=== PATIENT | male | born 1965 | race Caucasian/White ===

== ENCOUNTER 2017-07-09 14:52 | Emergency (ER) | payer MEDICAID ==
[2017-07-09] MEDS ORDERED: Acetaminophen TAB* 325 MG PO ONE (15:18)
--- NOTE | 2017-07-09 15:46 | RAD ---
HISTORY: Right-sided rib pain, cough COMPARISONS: Chest x-ray dated July 09, 2017 VIEWS: 4, Frontal and oblique views of the right hemithorax. FINDINGS: There is no displaced rib fracture or pneumothorax. The visualized lungs are clear. IMPRESSION: NO DISPLACED RIB FRACTURE OR PNEUMOTHORAX.
--- NOTE | 2017-07-09 15:46 | RAD ---
HISTORY: Fever, cough COMPARISONS: None VIEWS: 4: Frontal dual-energy and lateral views of the chest. FINDINGS: CARDIOMEDIASTINAL SILHOUETTE: The cardiomediastinal silhouette is normal. MARIAH: The mariah are normal. PLEURA: The costophrenic angles are sharp. No pleural abnormalities are noted. LUNG PARENCHYMA: The lungs are clear. ABDOMEN: The upper abdomen is clear. There is no subphrenic gas. BONES AND SOFT TISSUES: No bone or soft tissue abnormalities are noted. OTHER: None. IMPRESSION: NO ACTIVE CARDIOPULMONARY DISEASE.
[2017-07-09] MEDS ORDERED: HYDROcodone/ACETAMIN 5-325 MG* 1 TAB PO ONE (16:10)
[2017-07-09 16:14] VITALS: BP 108/64
--- NOTE | 2017-07-09 17:35 | UC ---
Juni Pickard Jennifer, scribed for Liss Mandujano MD on 07/09/17 at 1521 . Respiratory Complaint HPI - HPI Summary HPI Summary: The patient is a 52 year old male who complains of cough, fever, shortness of breath since late Sat night, early Saturday am. Reports that he had "the flu" approx 2 weeks ago (presumptive), took Tamiflu per outlying physician, exact # days or frequency unclear. Hurts R chest wall to cough, wonders if cracked a rib. + nausea, no diarrhea, no vomit. . Able to take po. Today took acetaminophen in am (time /dose unc), ibuprofen early afternoon ( approx 400mg), but still feels bad. Has nebulizer with medication, also inhalers at home. Reports that they have not helped very much. - History of Current Complaint Chief Complaint: UCRespiratory Stated Complaint: COUGH,FEVER,CONGESTED Time Seen by Provider: 07/09/17 15:09 Hx Obtained From: Patient Onset/Duration: Sudden Onset, Lasting Days - four days, Still Present, Worse Since Timing: Constant Severity Initially: Moderate Severity Currently: Moderate Pain Intensity: 8 Pain Scale Used: 0-10 Numeric Character: Cough: Nonproductive Aggravating Factors: Other - Coughing Alleviating Factors: Nothing Associated Signs And Symptoms: Positive: Fever - Allergies/Home Medications Allergies/Adverse Reactions: Allergies Allergy/AdvReac Type Severity Reaction Status Date / Time animal dander Allergy Difficulty Verified 07/09/17 14:58 Breathing Home Medications: Home Medications Albuterol HFA INHALER* [Ventolin HFA Inhaler*] 1 - 2 puff INH Q4H PRN 07/09/17 [ History Confirmed 07/09/17] Budesonide/Formote 80/4.5(NF) [Symbicort 80/4.5 (NF)] 07/09/17 [History Confirmed 07/09/17] Theozine 07/09/17 [History] PMH/Surg Hx/FS Hx/Imm Hx Previously Healthy: Yes - NEG: HTN, DM - Surgical History Surgical History: None - Family History Known Family History: Negative: Diabetes - Social History Lives: With Family Alcohol Use: None Substance Use Type: Prescribed Smoking Status (MU): Never Smoked Tobacco Review of Systems Constitutional: Fever Respiratory: Cough Gastrointestinal: Nausea Genitourinary: Frequency - Decreased Musculoskeletal: Myalgia All Other Systems Reviewed And Are Negative: Yes Physical Exam - Summary Physical Exam Summary: Appearance: Well-Nourished Eye Exam: Normal ENT Exam: Normal Respiratory Exam: Normal, no dyspnea, no tachypnea, normal respiratory rate Chest non-tender, Lungs clear, Normal breath sounds, No respiratory distress, No accessory muscle use Cardiovascular Exam: Normal Cardiovascular: Heart rate regular, good general skin color, good capillary refill RRR, No Murmur, Pulses Normal - sitting up. Brisk Capillary Refill Abdominal Exam: Normal Abdomen Description: Nontender, No Organomegaly, Soft Bowel Sounds: Present Musculoskeletal Exam: Normal Musculoskeletal: Strength Intact Neurological Exam: Normal: nonfocal, grossly intact. Psychological Exam: Normal: conversing easily and appropriately Skin Exam: Normal: no visible or reported rash Triage Information Reviewed: Yes Appearance: Well-Nourished - sittin up, conversing easily in full sentances Vital Signs: Initial Vital Signs Temp 102.1 F 07/09/17 15:01 Pulse 87 07/09/17 15:01 Resp 18 07/09/17 15:01 BP 128/90 07/09/17 15:01 Pulse Ox 95 07/09/17 15:01 Vital Signs Reviewed: Yes Eye Exam: Normal - grossly normal sclerae a little injected ENT: Positive: Pharyngeal erythema - mild post pharyng redness, uvula midline, no sores / exudates, Nasal congestion, TM dull Neck exam: Normal Neck: Positive: Supple, Nontender, No Lymphadenopathy Respiratory: Positive: Other: - BS equal Occas exp wheeze, bibasilar. No crackles. + rhonchorus cough, worsened with deep inspiration Cardiovascular Exam: Normal, Other - HR regular, correlates with radial pulse Abdominal Exam: Normal Abdomen Description: Positive: Nontender Bowel Sounds: Positive: Present Musculoskeletal Exam: Normal - gait steady, moves x 4 ext's Neurological Exam: Normal - grossly nonfocal Psychological Exam: Normal - conversing easily and appropriately Skin Exam: Normal - no visible or reported rash. nondiaphoretic. UC Diagnostic Evaluation - Laboratory O2 Sat by Pulse Oximetry: 95 - Radiology Xray Interpretation: No Acute Changes - Chest XR: NO ACTIVE CARDIOPULMONARY DISEASE. Ribs XR: NO DISPLACED RIB FRACTURE OR PNEUMOTHORAX. Dr. Mandujano has reviewed this report. Radiology Interpretation Completed By: Radiologist Re-Evaluation - Re-Evaluation First Eval Re-Evaluation Time: 15:44 Change: Unchanged Comment: The patient declined a breathing treatment. Respiratory Course/Dx - Course Course Of Treatment: Offered nebulized treatment at exam, and again at recheck 16:05. But he declines, citing that he has nebulizer and inhalers at home. Temp decreased with acetaminophen. Mr. Soto requests something for the cough at recheck, has been taking robitussin otc. [place] 5/325 po x 1 here. Rx robitussin with codeine - narc talk. [facility] ref # [id number]. Work note x 5 days. + Influenza precautions reviewed, along with need to go to ED if worse or new problems. Mr. Soto was given the opportunity to ask several insightful questions to which I answered to the best of my ability. - Differential Dx/Diagnosis Provider Diagnoses: Influenza A Discharge - Discharge Plan Condition: Stable Disposition: HOME Prescriptions: guaiFENesin/CODIEN 100MG-10MG* [Robitussin AC 100Mg-10Mg*] 10 ml PO Q4H PRN # 150 ml MDD 40ml PRN Reason: Cough Oseltamivir CAP* [Tamiflu CAP*] 75 mg PO BID #10 cap Patient Education Materials: Influenza (DC) Forms: *Work Release Referrals: [facility] [place] [facility]IAN REFERRAL [Outside] Additional Instructions: Please follow up with your primary care provider in 1-2 weeks. Seek medical attention for worse or new problems in the meantime. Your blood pressure was elevated during today's visit, 07/09/2017. Please follow up with your primary care provider in 1-2 weeks. The documentation as recorded by the Juni lauren Jennifer accurately reflects the service I personally performed and the decisions made by me, Liss Mandujano MD.
== END 2017-07-09 16:24 | disposition home or self-care (01) ==
LOC: UCEAST 14:52
DX: J10.1 Influenza due to other identified influenza virus with other respiratory manifestations (principal); R05 Cough; R50.9 Fever, unspecified
CPT/HCPCS: 71046; 87502; 99212; A9270-GY; G0463

== ENCOUNTER 2017-10-24 15:15 | Emergency (ER) | payer OTHER ==
[2017-10-24 15:47] VITALS: BP 139/71
--- NOTE | 2017-10-24 16:00 | UC ---
Back Pain HPI - HPI Summary HPI Summary: 52 y/o male presents to the urgent care c/o lower back and left hip pain for the past 13 days. Pt reports he was shoveling some soil and then lower back was triggered. Now he has numbness and tingling sensation over his left lower extremity. Pain is sharp w/ certain movements, 8/10. He has taken Aleve PO on and off to alleviate symptoms. He has Hx of B/L hip replacement in 2016. He also thinks he probably has a pinch nerve since he has had back pain issues in the past, but he has never done images of his back. Pt denies saddle anesthesia , urinary symptoms, fecal or urinary incontinence, SOB, calf pain. chest pain, abdominal pain, N/V/D - History of Current Complaint Chief Complaint: UCBackPain Stated Complaint: BACK COMPLAINT Time Seen by Provider: 10/24/17 15:58 Hx Obtained From: Patient Onset/Duration: Sudden Onset, Lasting Days - 13 days, Still Present Timing: Intermittent, Lasting Hours Severity Initially: Mild Severity Currently: Moderate Pain Intensity: 8 Pain Scale Used: 0-10 Numeric Back Pain: Is Discrete @ - lower back, Radiates To - left hip and left lower leg Character: Sharp, Spasmodic Aggravating Factor(s): Movement, Lifting, Bending Alleviating Factor(s): Rest, OTC Meds Associated Signs And Symptoms: Positive: Numbness, Tingling - left lower leg at times. Negative: Abdominal Pain, Flank Pain, Bladder Incontinence, Bowel Incontinence, Pain with Weight Bearing - Risk Factors AAA Risk Factors: Negative TAD Risk Factors: Negative Cauda Equina Risk Factors: Negative Epidural Abscess Risk Factors: Negative - Allergies/Home Medications Allergies/Adverse Reactions: Allergies Allergy/AdvReac Type Severity Reaction Status Date / Time animal dander Allergy Difficulty Verified 10/24/17 15:47 Breathing PMH/Surg Hx/FS Hx/Imm Hx Previously Healthy: Yes Respiratory History: Asthma - Surgical History Surgical History: Yes Surgery Procedure, Year, and Place: BILAT HIP REPLACEMENTS, RETINAL REATTACHMENT LEFT EYE - Family History Known Family History: Negative: Diabetes Family History: Cancer - Social History Occupation: Employed Full-time Lives: With Family Alcohol Use: Occasionally Substance Use Type: None Smoking Status (MU): Never Smoked Tobacco Review of Systems Constitutional: Negative Skin: Negative Eyes: Negative ENT: Negative Respiratory: Negative Cardiovascular: Negative Gastrointestinal: Negative Genitourinary: Negative Motor: Weakness - left lower leg Musculoskeletal: Decreased ROM - lower back, Other: - lower back pain Neurological: Negative Psychological: Negative Is Patient Immunocompromised?: No All Other Systems Reviewed And Are Negative: Yes Physical Exam - Summary Physical Exam Summary: Vital Signs Reviewed: Yes Appearance: Well-Appearing, Well-Nourished, male sitting in the examining table w/o any apparent distress. Eyes: Positive: Conjunctiva Clear - PERRLA, EOMI. ENT: Positive: Normal ENT inspection, Hearing grossly normal, Pharynx normal, TMs normal, Uvula midline Neck: Positive: Supple, Nontender, No Lymphadenopathy Respiratory: Positive: Chest non-tender, Lungs clear, Normal breath sounds, No respiratory distress Cardiovascular: Positive: RRR, No Murmur, Pulses Normal, Brisk Capillary Refill Abdomen Description: Positive: Nontender, No Organomegaly, Soft. Negative: CVA Tenderness (R), CVA Tenderness (L) Bowel Sounds: Positive: Present Musculoskeletal: Positive: Strength Intact, BACK: Patient walked into the urgent care room with symmetric ambulation, No signs of limping, antalgic, able to bear weight. No signs of trauma, No masses palpated. Point tenderness at the level of L5-S1, No CVAT, no flank ecchymosis . No sacroiliac notch tenderness, No saddle anesthesia.ROM: limited due to pain, Straight Leg Raise: negative. Patellar reflexes: brisk, symmetric Muscle strength lower extremities. Dorsiflexion/ plantar flexion of ankles. Heel/ toe walk. Lower extremities: Femoral, popliteal, posterior tibial, and dorsalis pedis pulses WNL. Pt refuse rectal exam Neurological: Positive: Alert, Muscle Tone Normal Psychological Exam: Normal Skin Exam: Normal Triage Information Reviewed: Yes Vital Signs: Initial Vital Signs Temp 98 F 10/24/17 15:43 Pulse 85 10/24/17 15:43 Resp 16 10/24/17 15:43 BP 139/71 10/24/17 15:43 Pulse Ox 96 10/24/17 15:43 Back Pain Course/Dx - Course Course Of Treatment: 52 y/o male presents to the urgent care c/o lower back and left hip pain for the past 13 days. Pt reports he was shoveling some soil and then lower back was triggered. Now he has numbness and tingling sensation over his left lower extremity. Pain is sharp w/ certain movements, 8/10. He has taken Aleve PO on and off to alleviate symptoms. He has Hx of B/L hip replacement in 2016. He also thinks he probably has a pinch nerve since he has had back pain issues in the past, but he has never done images of his back. Pt denies saddle anesthesia, urinary symptoms, fecal or urinary incontinence, SOB, calf pain. chest pain, abdominal pain, N/V/D. Hx obtained. PE: Point tenderness at the level of the L5-S1 and left paraspinal muscle spasm at the same level on examination. Lumbosacral X-ray ordered, Impression: osteoarthritis at multilevle degenerative spuring of the back. Left hip X-ray: B/L arthrosplasty, no acute osseous injury.Pt given toradol IM inj at the clinic, given by nurse. pt tolerated well IM inj and pain decrease. Pt Rx Naproxen PO, flexeril PO and Medrol dose pack. Patient was instructed to the f/u [facility] orthopedic Dr Overton in 1 week if symptoms do not improve or worsen. Patient understands and agrees. Patient is able to ambulate freely w/o aid or limp. Plan of care was discussed with the patient and patient understands and agrees. All questions were answered at patient satisfaction. Pt left clinic hemodynamically stable. - Differential Dx/Diagnosis Differential Diagnosis/HQI/PQRI: Cauda Equina Syndrome, Compressive Cord Syndrome, Herniated Disc, Osteoporosis, Strain, Sprain Provider Diagnoses: 1- Acute lower back strain. 2- Osteroarthritis Discharge - Sign-Out/Discharge Documenting (check all that apply): Discharge/Admit/Transfer - D/c home - Discharge Plan Condition: Stable Disposition: HOME Prescriptions: Cyclobenzaprine TAB* [Flexeril 10 MG TAB*] 10 mg PO TID PRN #15 tab PRN Reason: Spasms - Back methylPREDNISolone [Medrol Dosepak 4 MG*] 4 mg PO .SEE ERMA INSTRUCTION #1 erma Naproxen TAB* [Naprosyn 250 mg TAB*] 250 mg PO Q8H PRN #30 tab PRN Reason: back pain Patient Education Materials: Low Back Strain (ED), Degenerative Disc Disease ( ED) Referrals: [facility] [place] [facility] REFERR[facility] [Outside] - 1 Week Arnulfo Overton MD [Medical Doctor] - 1 Week Additional Instructions: 1- Please take Naproxen PO as directed after meals for pain. take Medrol dose erma as directed to alleviate symptoms 2- Take Flexeril PO as directed for muscle spasm. Please do not drive while taking the medication. 3- Wear a back support. Avoid strenuous exercise of heavy lifting. 4- Please follow up with Orthopedic Dr Overton or your PCP in 1 week if not improvement of symptoms, for further management. - Billing Disposition and Condition Condition: STABLE Disposition: Home
[2017-10-24] MEDS ORDERED: Ketorolac INJ* 30 MG/ML 1 ML VIAL IM ONE (16:19)
--- NOTE | 2017-10-24 16:47 | RAD ---
INDICATION: Left hip pain. Left hip arthroplasty COMPARISON: None TECHNIQUE: An AP view of the pelvis and AP views of the hip in neutral and abducted position were obtained FINDINGS: Bones: There are no acute bony findings. Joint spaces: There is bilateral hip arthroplasty. The single view of the right hip shows no evidence of hardware failure. The 2 views left hip show no evidence of hardware failure.. SI joints/symphysis: The SI joints and symphysis are intact. Other: None IMPRESSION: BILATERAL HIP ARTHROPLASTY. NO ACUTE FINDINGS.
--- NOTE | 2017-10-24 16:48 | RAD ---
INDICATION: Back pain COMPARISON: None TECHNIQUE: Routine PA, lateral, and oblique imaging was performed . FINDINGS: Bones: There are no acute bony findings. There are arthritic changes consisting of multilevel degenerative spurring and multiple endplate sclerosis. Alignment: Normal Disc spaces: Minor multilevel disc space narrowing. Soft tissues: There are no soft tissue abnormalities. IMPRESSION: MILD OSTEOARTHRITIC CHANGES.
== END 2017-10-24 17:50 | disposition home or self-care (01) ==
LOC: UCEAST 15:15
DX: S39.012A Strain of muscle, fascia and tendon of lower back, initial encounter (principal); X50.3XXA Overexertion from repetitive movements, initial encounter; Y93.H1 Activity, digging, shoveling and raking; Y92.9 Unspecified place or not applicable; M47.817 Spondylosis without myelopathy or radiculopathy, lumbosacral region; M25.552 Pain in left hip; J45.909 Unspecified asthma, uncomplicated; Z96.643 Presence of artificial hip joint, bilateral; Z80.9 Family history of malignant neoplasm, unspecified
CPT/HCPCS: 72110; 96372; 99211; G0463; J1885

== ENCOUNTER 2018-05-18 14:54 | Emergency (ER) | payer OTHER ==
--- NOTE | 2018-05-18 15:06 | UC ---
Back Pain HPI - HPI Summary HPI Summary: 52 yo male presents with back pain. He tells me that two days ago his hip "locked up", which it does occasionally, and he fell backwards against the corner of a piece of furniture. Impacted his right ribs and right mid back. Has had pain in this area since. He has not taken anything OTC for his discomfort. Denies SOB, cough, radiation of pain, numbness, or tingling. - History of Current Complaint Stated Complaint: BACK PAIN DUE TO FALL Time Seen by Provider: 05/18/18 15:05 Hx Obtained From: Patient Onset/Duration: Sudden Onset Timing: Constant Severity Initially: Severe Severity Currently: Severe Pain Intensity: 10 Pain Scale Used: 0-10 Numeric - Allergies/Home Medications Allergies/Adverse Reactions: Allergies Allergy/AdvReac Type Severity Reaction Status Date / Time animal dander Allergy Difficulty Verified 05/18/18 15:12 Breathing PMH/Surg Hx/FS Hx/Imm Hx Respiratory History: Asthma - Surgical History Surgical History: Yes Surgery Procedure, Year, and Place: BILAT HIP REPLACEMENTS, RETINAL REATTACHMENT LEFT EYE - Family History Known Family History: Negative: Diabetes Family History: Cancer - Social History Occupation: Employed Full-time Lives: With Family Alcohol Use: Occasionally Substance Use Type: None Smoking Status (MU): Never Smoked Tobacco Review of Systems All Other Systems Reviewed And Are Negative: Yes Constitutional: Positive: Negative Skin: Positive: Negative Respiratory: Positive: Negative Cardiovascular: Positive: Negative Neurovascular: Positive: Negative Musculoskeletal: Positive: Other: - Right rib pain Neurological: Positive: Negative Psychological: Positive: Negative Physical Exam - Summary Physical Exam Summary: GENERAL: NAD. WDWN. SKIN: No rashes, sores, lesions, or open wounds. NECK: Supple. FROM. Nontender. CHEST: CTAB. No r/r/w. No accessory muscle use. Breathing comfortably and in no distress. CV: RRR. Without m/r/g. Pulses intact. Cap refill <2seconds MSK: TTP over Right ribs 8th-11th posterior>anterior. Pain with deep breaths and coughing in this area. No vertebral tenderness. NEURO: Alert. PSYCH: Age appropriate behavior. Triage Information Reviewed: Yes Vital Signs: Vital Signs: Temp Pulse Resp BP Pulse Ox 99.0 F 78 18 171/97 98 05/18/18 15:03 05/18/18 15:03 05/18/18 15:03 05/18/18 15:03 05/18/18 15:03 Laboratory Tests 05/18/18 15:27 POC Urine Color Yellow POC Urine Clarity Cloudy POC Urine pH 7.5 POC Ur Specif [place] 1.020 POC Urine Protein Trace A POC Ur Glucose (UA) Negative POC Urine Ketones Negative POC Urine Blood Trace-intact A POC Urine Nitrite Negative POC Urine Bilirubin Negative POC Urine Urobilinogen 0.2 POC U Leukocyte Esteras Negative Vital Signs Reviewed: Yes Back Pain Course/Dx - Course Course Of Treatment: XR: IMPRESSION: No acute rib fracture or pneumothorax. Pt was given norco in the clinic with mild relief of his discomfort. XR reading is negative, but looking at the films with Dr. Pedraza - there does appear to be a nondisplaced 10th rib fracture. Given pt's SHAZIA and this is the exact location of his pain, will treat as fx. Rx for norco and lidoderm patch and f/u with PCP for a recheck in a week or two. [facility]: Reference #: [id number] - Differential Dx/Diagnosis Provider Diagnosis: Rib fracture Discharge - Sign-Out/Discharge Documenting (check all that apply): Patient Departure All imaging exams completed and their final reports reviewed: Yes - Discharge Plan Condition: Stable Disposition: HOME Prescriptions: Hydrocodone/Acetaminophen [[place] 5-325 Tablet] 1 each PO Q8H PRN #9 tablet MDD 3 PRN Reason: Pain Lidocaine PATCH 5%* [Lidoderm 5% Patch*] 1 patch TRANSDERM DAILY PRN #1 box PRN Reason: Pain Patient Education Materials: Rib Fracture (ED) Referrals: No Primary Care Phys,NOPCP [Primary Care Provider] - Additional Instructions: If you develop a fever, shortness of breath, chest pain, new or worsening symptoms - please call your PCP or go to the ED. Your blood pressure was high at todays visit. Please see your primary provider within 4 weeks for recheck and re-evaluation. Rest and apply ice to your ribs - this will likely take a few weeks to heal. - Billing Disposition and Condition Condition: STABLE Disposition: Home - Attestation Statements Provider Attestation: Per institutional requirements, I have reviewed the chart, however, I was not consulted specifically or made aware of this patient by the midlevel provider. I did not personally evaluate, interact with , or disposition this patient.
[2018-05-18] MEDS ORDERED: HYDROcodone/ACETAMIN 5-325 MG* 1 TAB PO ONE (15:19)
[2018-05-18 15:28] VITALS: BP 171/97
== END 2018-05-18 16:28 | disposition home or self-care (01) ==
LOC: UCEAST 14:54
DX: S22.31XA Fracture of one rib, right side, initial encounter for closed fracture (principal); W08.XXXA Fall from other furniture, initial encounter; Y92.9 Unspecified place or not applicable; Z96.643 Presence of artificial hip joint, bilateral
CPT/HCPCS: 81003; 99212; G0463